=== PATIENT | male | born 1995 | race Hispanic/Latino ===

== ENCOUNTER 2019-01-27 15:45 | Outpatient (CLI) | payer BC ==
--- NOTE | 2019-01-28 08:27 | MRI ---
MRI LUMBAR SPINE NONCONTRAST: HISTORY: Low back pain. Lumbar radiculopathy, acute symptoms. COMPARISON: None. FINDINGS: There is abnormal mixed signal intensity involving the left paraspinal/retroperitoneal region. This a angelic of abnormal signal intensity 7.6 cm anterior-posterior x 8.0 cm mediolateral x 9.8 cm craniocaudal. Incomplete characterization. There is dilatation of the left renal pelvis and intrarena l collecting system, likely from mass effect from aforementioned mass. There does appear to be some displacement of the left psoas muscle. Abnormal signal intensity is noted in the L2 and L3 vertebral bodies. Abnormal signal is noted predominantly in the central and left aspect. No evidence of fracture. Based on the sagittal images, Central spinal canal is patent. No significant degenerative disc diseas e. Neural foramina are patent. IMPRESSION: Findings worrisome for a malignant process involving the left retroperitoneum/paraspinal region. The possibility a sarcoma cannot be excluded. Further evaluation with a chest, abdomen, and pelvic CT utilizing IV contrast and oral contrast is recommended. Results of the study were discussed with Dr. Franco 01/27/2019 at 4:51 PM Code CR Transcribed Date/Time: 01/28/2019 9:08 AM
== END 2019-01-27 15:46 | disposition home or self-care (01) ==
LOC: TBSIIMAG 15:45
PROVIDERS: ATTEND Neurological Surgery
DX: M54.16 Radiculopathy, lumbar region (principal); M54.5 Low back pain
CPT/HCPCS: 72148

== ENCOUNTER 2019-01-29 11:38 | Outpatient (CLI) | payer BC ==
[2019-01-29] MEDS ORDERED: Iopamidol 370 76% 100 ML VIAL ONE (11:42)
--- NOTE | 2019-01-29 13:16 | CT ---
Exam: Chest and abdomen and pelvic CT scan with IV contrast: HISTORY: Abdominal pain abnormal prior MRI COMPARISON: Lumbar spine MRI 01/27/2019 FINDINGS: The lungs appear unremarkable. No mediastinal mass or adenopathy. No evidence for pulmonary parenchym al process, pleural or pericardial effusion, or evidence for pulmonary metastasis. Liver, gallbladder, pancreas, and spleen are unremarkable. There is a very large lobulated necrotic m ass in the left psoas muscle and retroperitoneum measuring 9.6 x 10.6 x 12.2 cm in size. This mass partially encircles the aorta and appears to be invading it. There is some bony erosive changes of th e anterior left lateral aspects of L2 and L3 vertebral bodies evidence for invasion. The left kidney is displaced anteriorly and laterally and shows marked hydronephrosis with dilatation down to the level of the large retroperitoneal mass. No CT evidence for acute appendicitis. No evidence for ascites. No evidence for peripheral adenopathy. 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 CODE T
== END 2019-01-29 11:39 | disposition home or self-care (01) ==
LOC: CT 11:38
PROVIDERS: ATTEND Neurological Surgery
DX: R19.00 Intra-abdominal and pelvic swelling, mass and lump, unspecified site (principal); C48.0 Malignant neoplasm of retroperitoneum
CPT/HCPCS: 71260; 74177; Q9967